=== PATIENT | male | born 1975 | race Caucasian/White ===

== ENCOUNTER 2018-02-22 20:51 | Emergency (ER) | payer BC ==
[~2018-02-22] VITALS: Ht 180.3 cm; Wt 82.5 kg
[~2018-02-22 20:51] MED LIST: Augmentin 875-1 EACH PO; CEPH500 PO; DOXY100 PO; Norco 5-325 Ta1 EACH PO; OMEP20ER PO; PANT20 PO; RXCEPH500 PO; RXHYDACE PO; SULTRIDS PO
== END 2018-02-22 22:07 | disposition home or self-care (01) ==
LOC: ER 20:51
DX: M79.641 Pain in right hand (principal); F17.200 Nicotine dependence, unspecified, uncomplicated; Z88.1 Allergy status to other antibiotic agents; Z88.2 Allergy status to sulfonamides
CPT/HCPCS: 29125; 73130; 99283